=== PATIENT | female | born 1980 | race African-American/Black ===

== ENCOUNTER 2021-05-20 16:41 | Emergency (ER) | payer SELFPAY ==
[~2021-05-20] VITALS: Ht 157.5 cm; Wt 45.8 kg
[2021-05-20] MEDS ORDERED: TRAMADOL HCL 50 MG TAB PO STA (17:30)
[2021-05-20] MEDS ORDERED: MOTRIN800 MG PO (18:21)
== END 2021-05-20 18:28 | disposition home or self-care (01) ==
LOC: FSED 17:35
DX: S50.11XA Contusion of right forearm, initial encounter (principal); X58.XXXA Exposure to other specified factors, initial encounter; F17.210 Nicotine dependence, cigarettes, uncomplicated
CPT/HCPCS: 99283